=== PATIENT | male | born 1960 | race Caucasian/White ===

== ENCOUNTER 2019-02-13 16:54 | Emergency (ER) | payer BC ==
--- NOTE | 2019-02-13 16:58 | EDPHY ---
H & P Time Seen by Provider: 02/13/19 16:57 Constitutional: Initial Vital Signs Temperature (C) 36.5 C 02/13/19 16:58 Heart Rate 80 02/13/19 16:58 Respiratory Rate 18 02/13/19 16:58 Blood Pressure 136/103 H 02/13/19 16:58 O2 Sat (%) 94 02/13/19 16:58 O2 Delivery Mode Nasal Cannula O2 (L/minute) 2 Allergies/Adverse Reactions: No Known Allergies Allergy (Unverified 02/13/19 17:01) Home Medications: Medication Instructions Recorded Hydrocodone/APAP 5/325 [[place] 1 - 2 each PO Q4-6PRN PRN #20 tab 02/13/19 5/325] Ibuprofen [Motrin] 800 mg PO Q8 #20 tab 02/13/19 Tamsulosin HCl [Flomax 0.4 MG (*)] 0.4 mg PO DAILY #10 cap 02/13/19 Medical Decision Making - Diagnostics Imaging Results: Imaging Impressions Abdomen/Pelvis CT 02/13/19 17:13 Impression: 1. Possible punctate, nonobstructive distal left ureteral calculus. There is new left nonobstructive nephrolith. 2. Mildly progressive diverticulosis without evidence of diverticulitis 3. Progressive fatty infiltration of the liver associated with a benign right adrenal adenoma. Recommend excluding Zheng's disease. Is also discussed with Dr. Ken Chapa at 6:02 PM. Attention: This CT examination is specifically designed to evaluate patients who are clinically suspected of having acute obstructive uropathy. This examination does not use radiographic contrast, and as such, provides only a limited evaluation of the abdomen, pelvis and retroperitoneum. If there is further clinical suspicion for pathological conditions other than obstructive uropathy, a complete CT evaluation of the abdomen and pelvis utilizing intravenous, oral, and rectal contrast should be considered. General information for patients regarding this examination can be found at [email or web address]. If you have questions or comments about this report, please contact me at [phone](hospital) or [phone] (cell). Imaging: Discussed imaging studies w/ scallop cutter machine Radiologist, I viewed and interpreted images myself ED Course/Re-evaluation: CHIEF COMPLAINT: Left flank pain HISTORY OF PRESENT ILLNESS: The patient is a 58 y/o male with a history of kidney stones complaining of worsening left flank pain onset yesterday. At 15:00 yesterday, 26 hours ago, he developed an upset stomach and abdominal bloating. Last night he was unable to sleep well due to the discomfort. Today the pain continued and he also felt nauseated. However, at 13:00, 4 hours ago his pain significantly increased. He was unsure if he was having a kidney stone as prior kidney stones did not present with the abdominal discomfort and bloating. Due to these symptoms the patient presented to an urgent care where he had a UA which revealed 1+ blood in his urine. Due to the abnormal presentation of his symptoms and UA findings he was sent to the emergency department. The urgent care did give the patient nausea and pain medicine. The patient reports he has not had a bowel movement for one day. He did have a colonoscopy within the last year. No fever, headache , body aches, lightheadedness, chest pain, heart palpitations, shortness of breath, cough, numbness, paresthesias. REVIEW OF SYSTEMS: A 10 point review of systems was performed and is negative with the exception of the elements mentioned in the history of present illness. PHYSICAL EXAM: HR, BP, O2 Sat, RR. Temp noted General Appearance: Alert, well hydrated, appropriate, and non-toxic appearing. Head: Atraumatic without scalp tenderness or obvious injury Eyes: Pupils equal, round, reactive to light and accommodation, EOMI, no trauma , no injection. Ears: Clear bilaterally, no perforation, normal landmarks Nose: Atraumatic, no rhinorrhea, clear. Throat: There is no erythema or exudates, no lesions, normal tonsils, mucus membranes moist. Neck: Supple, 2+ carotid upstroke, nontender, no lymphadenopathy. Respiratory: No retractions, no distress, no wheezes, and no accessory muscle use. Lungs are clear to auscultation bilaterally. Cardiovascular: Regular rate and rhythm, no murmurs, rubs, or gallops. Bilateral carotid, radial, dorsalis pedis, and posterior tibial pulses intact. Good capillary refill all extremities. Gastrointestinal: Left CVA and left pericolic gutter tenderness to palpation. Abdomen is soft, non-distended, no masses, no rebound, no guarding, no peritoneal signs. Musculoskeletal: Normal active ROM of all extremities, atraumatic. Neurological: Alert, appropriate, and interactive. The patient has normal DTRs and non-focal cranial nerves, motor, sensory, and cerebellar exam. Skin: No rashes, good turgor, no nodules on palpation. Past medical history: Kidney stones Past surgical history: Denies Family history: Denies Social history: Lives in [place], , employed DIAGNOSTICS/PROCEDURES/CRITICAL CARE TIME: Abdominopelvic CT: Possible punctate, nonobstructive distal left ureteral calculus. There is new left nonobstructive nephrolith. Mildly progressive diverticulosis without evidence of diverticulitis. Progressive fatty infiltration of the liver associated with a benign right adrenal adenoma. Recommend excluding Chickasaw's disease. DIFFERENTIAL DIAGNOSIS: The differential diagnosis for the patient's flank pain included but was not limited to musculoskeletal causes, kidney stone, pyelonephritis, shingles, diverticulitis, appendicitis, and aortic aneurysm. MEDICAL DECISION MAKING: The patient is a 58 y/o male with a history of kidney stones presenting with worsening left flank pain onset yesterday. At 15:00 yesterday, 26 hours ago, he developed an upset stomach and abdominal bloating. At 13:00 today, 4 hours ago his pain significantly increased. Due to these symptoms the patient presented to an urgent care where he had a UA which revealed 1+ blood in his urine. The urgent care did give the patient nausea and pain medicine. On exam the patient has left CVA and left pericolic gutter tenderness to palpation consistent with a sigmoid diverticulitis. Labs and abdominopelvic CT; 1L IV NS, 30mg IV Toradol , 1mg IV Dilaudid, 4mg IV Zofran administered. 1804: I spoke with Dr. Martinez, radiologist, regarding patient's abdominopelvic CT. Patient has a left-sided kidney stone and some progressive fatty infiltration of the right adrenal gland. 1821: Reassessed patient and discussed imaging and laboratory findings. Patient is feeling better after medications and would like to be discharged home. I have advised him to follow up with a urologist and PCP. I have prescribed him Flomax, Motrin, and [place] for his symptoms. I have also advised him to strain his urine. Return precautions provided; patient is comfortable with this plan. - Data Points Laboratory Results: Laboratory Results 02/13/19 17:30 02/13/19 17:30 02/13/19 02/13/19 17:30 17:30 WBC 5.82 10^3/uL 10^3/uL (3.80-9.50) RBC 5.56 10^6/uL 10^6/uL (4.40-6.38) Hgb 17.2 g/dL g/dL (13.7-17.5) Hct 48.0 % % (40.0-51.0) MCV 86.3 fL fL (81.5-99.8) MCH 30.9 pg pg (27.9-34.1) MCHC 35.8 g/dL g/dL (32.4-36.7) RDW 11.9 % % (11.5-15.2) Plt Count 158 10^3/uL 10^3/uL (150-400) MPV 10.1 fL fL (8.7-11.7) Neut % (Auto) 73.0 % % (39.3-74.2) Lymph % (Auto) 13.4 % L % (15.0-45.0) Rankin % (Auto) 10.5 % % (4.5-13.0) Eos % (Auto) 2.1 % % (0.6-7.6) Baso % (Auto) 0.7 % % (0.3-1.7) Nucleat RBC Rel Count 0.0 % % (0.0-0.2) Absolute Neuts (auto) 4.25 10^3/uL 10^3/uL (1.70-6.50) Absolute Lymphs (auto) 0.78 10^3/uL L 10^3/uL (1.00-3.00) Absolute Monos (auto) 0.61 10^3/uL 10^3/uL (0.30-0.80) Absolute Eos (auto) 0.12 10^3/uL 10^3/uL (0.03-0.40) Absolute Basos (auto) 0.04 10^3/uL 10^3/uL (0.02-0.10) Absolute Nucleated RBC 0.00 10^3/uL 10^3/uL (0-0.01) Immature Gran % 0.3 % % (0.0-1.1) Immature Gran # 0.02 10^3/uL 10^3/uL (0.00-0.10) Sodium 134 mEq/L L mEq/L (135-145) Potassium 4.0 mEq/L mEq/L (3.5-5.2) Chloride 102 mEq/L mEq/L (97-110) Carbon Dioxide 24 mEq/l mEq/l (22-31) Anion Gap 8 mEq/L mEq/L (6-14) BUN 13 mg/dL mg/dL (7-23) Creatinine 0.9 mg/dL mg/dL (0.7-1.3) Estimated GFR > 60 Glucose 106 mg/dL H mg/dL (70-100) Calcium 9.6 mg/dL mg/dL (8.5-10.4) Total Bilirubin 1.6 mg/dL H mg/dL (0.1-1.4) Conjugated Bilirubin 0.3 mg/dL mg/dL (0.0-0.5) Unconjugated Bilirubin 1.3 mg/dL H mg/dL (0.0-1.1) AST 27 IU/L IU/L (17-59) ALT 44 IU/L IU/L (21-72) Alkaline Phosphatase 78 IU/L IU/L (38-126) Total Protein 6.9 g/dL g/dL (6.3-8.2) Albumin 4.4 g/dL g/dL (3.5-5.0) Lipase 64 IU/L IU/L (23-300) Medications Given: Discontinued Medications Hydromorphone HCl (Dilaudid) 1 mg IVP EDNOW ONE Stop: 02/13/19 17:13 Last Admin: 02/13/19 17:35 Dose: 1 mg Sodium Chloride (Ns) 1,000 mls @ 0 mls/hr IV EDNOW ONE; Wide Open PRN Reason: Protocol Stop: 02/13/19 17:13 Last Admin: 02/13/19 17:34 Dose: 1,000 mls Ketorolac Tromethamine (Toradol) 30 mg IVP EDNOW ONE Stop: 02/13/19 17:13 Last Admin: 02/13/19 17:34 Dose: 30 mg Ondansetron HCl (Zofran) 4 mg IVP EDNOW ONE Stop: 02/13/19 17:13 Last Admin: 02/13/19 17:34 Dose: 4 mg Departure - Departure Disposition: Home, Routine, Self-Care Clinical Impression: Calculus of left kidney Condition: Good Instructions: Kidney Stones (ED), How to Strain Your Urine (ED) Additional Instructions: 1. Followup with your urologist within one week. 2. Take Flomax, [place], and Motrin as prescribed. 3. Return to the emergency apartment for fever, severe pain, inability to urinate or other concerns. 4. Strain urine to try and catch the kidney stone and bring this to the urology appointment. 5. Follow up with your PCP regarding the progressive fatty infiltration of the right adrenal gland. Referrals: Rebeca Rodriguez MD [Primary Care Provider] - As per Instructions Azul Kimble MD [Medical Doctor] - As per Instructions Prescriptions: Hydrocodone/APAP 5/325 [[place] 5/325] 1 - 2 each PO Q4-6PRN PRN #20 tab PRN Reason: Pain, Moderate Ibuprofen [Motrin] 800 mg PO Q8 #20 tab Tamsulosin HCl [Flomax 0.4 MG (*)] 0.4 mg PO DAILY #10 cap Report Scribed for: Ken Chapa Report Scribed by: Klarissa Lovell Date of Report: 02/13/19 Time of Report: 16:59
[2019-02-13] MEDS ORDERED: ONDANSETRON 4 MG/2 ML VIAL IVP ONE (17:12)
[2019-02-13] MEDS ORDERED: NS 1,000 ML IV ONE (17:12)
[2019-02-13] MEDS ORDERED: KETOROLAC 30 MG/1 ML SDV IVP ONE (17:12)
[2019-02-13] MEDS ORDERED: HYDROmorphONE/DILAUDID 2 MG/ML INJ IVP ONE (17:12)
[2019-02-13 17:50] LABS: PLATELET COUNT 158 10^3/uL (150-400)
[2019-02-13 18:13] VITALS: BP 151/83
== END 2019-02-13 18:39 | disposition home or self-care (01) ==
DX: N20.0 Calculus of kidney (principal); E86.9 Volume depletion, unspecified; Z87.442 Personal history of urinary calculi
CPT/HCPCS: 96374; J1170; J1885; J2405